=== PATIENT | female | born 1985 | race Two or more races ===

== ENCOUNTER 2024-07-26 12:08 | Outpatient (CLI) | payer OTHER | END 2024-07-26 12:17 | disposition home or self-care (01) | LOC: RAD 12:08 | PROVIDERS: ATTEND Orthopaedic Surgery | DX: M25.561 Pain in right knee (principal) ==

== ENCOUNTER 2024-10-23 12:08 | Outpatient (CLI) | payer OTHER | END 2024-10-23 12:21 | disposition home or self-care (01) | LOC: TOM 12:08 | PROVIDERS: ATTEND Orthopaedic Surgery | DX: M25.531 Pain in right wrist (principal); S62.310A Displaced fracture of base of second metacarpal bone, right hand, initial encounter for closed fracture ==

== ENCOUNTER → 2024-12-31 10:27 | Outpatient (CLI) | payer OTHER ==
[~2024-12-31] VITALS: Ht 162.6 cm; Wt 61.2 kg
[2024-12-31 12:25] VITALS: BP 114/72
[2024-12-31 12:48] LABS: BASO % 0.4 % (0.1-1.2); EOS # 0.15 (0.04-0.54); EOS % 3.1 % (0.7-7.0); LYMPH # 2.18 (1.18-3.74); LYMPH % 44.7 % (19.3-53.1); MEAN PLATELET VOLUME 9.90 fl (9.4-12.4); MONO # 0.40 (0.24-0.82); MONO % 8.2 % (4.7-12.5); NEUT # 2.13 (1.56-6.13); NEUT % 43.6 % (34.0-71.1); RED CELL DISTRIBUTION WIDTH 11.9 % (11.6-14.4)
[2024-12-31 12:55] LABS: URINE APPEARANCE Clear; URINE BILIRRUBIN Negative (NEGATIVE); URINE BLOOD Negative; URINE COLOR Yellow; URINE GLUCOSE Negative (NEGATIVE); URINE KETONE Negative (NEGATIVE); URINE LEUKOCYTE Negative; URINE NITRATE Negative; URINE PROTEIN Negative (NEGATIVE); URINE UROBILINOGEN 0.2 E.U./dl
[2024-12-31 12:59] LABS: URINE BACTERIA 440.4 uL (0.0-1933); URINE EPITHELIAL CELLS 9.0 uL (0.0-38.8); URINE RBC 6.0 uL (0.0-20.8)
[2024-12-31 13:07] LABS: URINE CAST 0.00 uL (0.0-1.40); URINE WBC 1.2 uL (0.0-23.2)
[2024-12-31 13:14] LABS: ALT/SGPT 29.0 U/L (12-78); AST/SGOT 18.0 U/L (15-37); BILIRUBIN TOTAL 0.69 mg/dL (0.3-1.2); BUN CREA RATIO 31.0 (7.0-25.0); CREATININE SERUM 0.39 mg/dL (0.55-1.02); GFR 181.11; GLOBULINA 3.5 G/DL (2.4-3.5); GLUCOSE FASTING 85.0 mg/dL (65-100); INR 1.07; OSMOLALITY SERUM 280.0 MOSM/KG (275-295)
[2024-12-31 13:40] LABS: COL EPI 67 SECONDS (82-175)
== END | disposition home or self-care (01) ==
LOC: LAB 10:27
PROVIDERS: ATTEND Orthopaedic Surgery
DX: D64.9 Anemia, unspecified (principal); E88.9 Metabolic disorder, unspecified; D68.8 Other specified coagulation defects; N39.0 Urinary tract infection, site not specified; Z22.322 Carrier or suspected carrier of Methicillin resistant Staphylococcus aureus; I10 Essential (primary) hypertension; Z76.89 Persons encountering health services in other specified circumstances

== ENCOUNTER 2025-01-15 07:00 | Day surgery (SDC) | payer OTHER ==
[2025-01-09 14:52] VITALS: BP 114/72
[~2025-01-15] VITALS: Ht 162.6 cm; Wt 61.2 kg
[2025-01-15] MEDS ORDERED: NAFCILLIN SODIUM 2,000 MG VIAL IV ONE (08:45)
[2025-01-15] MEDS ORDERED: BUPIVACAINE HCL 30 ML VIAL IJ ONE (08:45)
== END 2025-01-15 14:55 | disposition home or self-care (01) ==
LOC: CIR.AMB 07:00
PROVIDERS: ATTEND Orthopaedic Surgery
DX: M23.221 Derangement of posterior horn of medial meniscus due to old tear or injury, right knee (principal); M65.861 Other synovitis and tenosynovitis, right lower leg